=== PATIENT | male | born 1935 | race Caucasian/White ===

== ENCOUNTER 2016-09-15 10:26 | Outpatient (CLI) | payer MEDICARE, BC ==
[~2016-09-15] VITALS: Ht 171.4 cm; Wt 109.1 kg
--- NOTE | ~2016-09-15 | HEMODYNAMI ---
PATIENT:Bharati GALLEGOS MEDICAL RECORD: [id number] : 33 LOCATION:[facility] ADMISSION DATE: 09/15/16 Generatedon:09/15/201614:26 Patient name: Bharati GALLEGOS Patient #: [id number] SSN: : 1935 Date of study: 09/15/2016 Page: Of Hemodynamic Procedure Report Patient Data Patient Demographics Procedure consent was obtained First Name: Bharati Gender: Male Last Name: ROSY : 1935 Middle Initial: RAY Age: 80 year(s) Patient #: [id number] Race: Unknown Additional ID: [id number] Contact details Address: [address] [place] [address] DRIVE State: [place] City: [place] Zip code: [address] Admission Admission Data Admission Date: 09/15/2016 Admission Time: 10:26 Procedure Procedure Types Cath Procedure Diagnostic Procedure PPM/ICD PPM Dual Implant Procedure Description Procedure Date Procedure Date: 09/15/2016 Procedure Start Time: 13:54 Procedure End Time: 14:25 Procedure Staff Name Function Ronald Claros MD Performing Physician Swapnil Panda MD Assisting physician Oswaldo Ansari RT Scrub Ryan Quintanilla RN Nurse Pepper Centeno RN Nurse Vinh Dixon RT Monitor Procedure Data Cath Procedure Fluoroscopy Diagnostic fluoroscopy Total fluoroscopy Time: 1.8 time: 1.8 min min Diagnostic fluoroscopy Total fluoroscopy dose: 64 dose: 64 mGy mGy Contrast Material Contrast Material Type Amount (ml) Isovue 300 0 Estimated blood loss: 10 ml Procedure Complications No complications Procedure Medications Medication Administration Route Dosage Vancomycin I.V.P.B 1 g Lidocaine 1% with added to field 20 ml Epi Bupivacaine 0.5% added to field 10 ml Vancomycin Topical 1 g Irrigation Hemodynamics Rest Pre Cath Intra NCS Post Cath Vital Signs Time Heart Resp SPO2 NIBP (mmHg) Rhythm Pain Sedation Rate (ipm) (%) Status Level (bpm) 13:20:59 64 15 99 162/77(103) NSR 0 (11) 10(A) , No pain 13:27:18 72 22 99 129/30(52) NSR 0 (11) 10(A) , No pain 13:33:14 65 33 97 136/75(110) NSR 0 (11) 10(A) , No pain 13:37:47 64 20 97 148/67(109) NSR 0 (11) 10(A) , No pain 13:42:09 65 34 97 118/69(92) NSR 0 (11) 10(A) , No pain 13:46:37 71 13 98 115/66(103) NSR 0 (11) 10(A) , No pain 13:51:02 66 26 98 116/54(100) NSR 0 (11) 10(A) , No pain 13:55:32 71 23 97 121/51(86) NSR 0 (11) 10(A) , No pain 13:59:50 66 15 98 109/58(94) NSR 0 (11) 10(A) , No pain 14:04:16 76 27 97 103/54(79) NSR 0 (11) 10(A) , No pain 14:08:36 57 17 96 92/51(85) NSR 0 (11) 10(A) , No pain 14:12:57 80 14 96 96/52(78) NSR 0 (11) 10(A) , No pain 14:17:19 79 24 96 107/51(84) NSR 0 (11) 10(A) , No pain 14:21:43 85 23 98 95/55(71) NSR 0 (11) 10(A) , No pain Medications Time Medication Route Dose Verified Delivered Reason Notes Effectiv eness by by 13:19:39 Vancomycin Topical 1 g Pepper Pepper used for Irrigation Taryn Taryn twisthand RN 13:20:16 Bupivacaine added 10 ml Pepper Pepper used for 0.5% to Taryn Taryn procedure field RN RN 13:20:56 Lidocaine added 20 ml Pepper Pepper used for 1% with Epi to Taryn Taryn procedure field RN RN 13:24:39 Vancomycin I.V.P.B 1 g Pepper Pepper Per Taryn Taryn physician RN director customer Log Time Note 12:52:36 Diagnostic Cath status Elective 12:52:38 Oswaldo Suit RT(R) sent for patient. Start room use. 12:52:45 Time tracking: Regular hours 12:52:49 Plan of Care:Hemodynamics will remain stable., Cardiac rhythm will remain stable., Comfort level will be maintained., Respiratory function will remain adequate., Patient/ family verbilizes understanding of procedure., Procedure tolerated without complication., Recovers from procedure without complications.. 13:12:11 Patient received from Pre/Post Procedure Room to CCL 3 Alert and oriented. Tansferred to table in Supine position. 13:12:12 Warm blankets applied, and mable hugger turned on for patient comfort. 13:12:13 Correct patient and procedure confirmed by team. 13:12:14 Signed procedure consent form obtained from patient. 13:12:19 ECG and BP/O2 sat monitors applied to patient. 13:19:21 Vital chart was started 13:19:39 Vancomycin Irrigation 1 g Topical was administered by Pepper Centeno RN; used for procedure; 13:20:16 Bupivacaine 0.5% 10 ml added to field was administered by Pepper Centeno RN; used for procedure; 13:20:56 Lidocaine 1% with Epi 20 ml added to field was administered by Pepper Centeno RN; used for procedure; 13:24:39 Vancomycin 1 g I.V.P.B was administered by Pepper Centeno RN; Per physician; 13:28:56 Rhythm: sinus bradycardia 13:28:57 Full Disclosure recording started 13:29:10 H&P Date Dictated: 09/08/2016 Within 30 days and on chart., H&P Addendum completed by physician on day of procedure. (MUST COMPLETE FOR ALL OUTPATIENTS). 13:29:11 Pre-procedure instructions explained to patient. 13:29:11 Pre-op teaching completed and patient verbalized understanding. 13:29:14 Family in waiting room. 13:29:15 Patient NPO since Midnight. 13:29:18 Is the patient allergic to Iodine/contrast media? No. 13:29:23 Is patient on blood thinner?No 13:29:25 Patient diabetic? No. 13:29:54 Previous problem with sedation/anesthesia? No ? 13:29:55 Snore? No 13:29:57 Sleep apnea? No 13:29:57 Deviated septum? No 13:29:58 Opens mouth fully? Yes 13:29:59 Sticks out tongue? Yes 13:30:00 Airway obstruction? No ? 13:30:04 Dentures? Yes OUT 13:30:28 Patient pain scale 0/10 ?. 13:30:34 IV patent on arrival in left forearm with 0.9% NaCl at [facility]. 13:30:37 Lab results completed and on chart. 13:30:46 Left chest area was prepped with dura-prep and draped in sterile fashion 13:30:48 Alarms reviewed by R. N. 13:30:48 Sharps counted by scrub and verified by R.N. 13:30:54 Use device set Pacemaker Set 13:30:56 Mepilex Dressing opened to sterile field. 13:30:57 2.0 Ticron Multipack opened to sterile field. 13:30:58 3.0 Vicryl Multipack [id number] opened to sterile field. 13:31:00 5.0 Monocryl PS2 [id number] opened to sterile field. 13:31:02 Immobilizer Extra Large opened to sterile field. 13:31:37 Medtronic loan representative Gabriele Bai present for procedure. 13:31:56 Pre sharps counted by scrub and verified by RN: Sutures: 14 Sponges: 5 Stick needles: 2 Skin needles: 2 Blade: 1 Cautery: 1 13:31:59 Grounding pad site Left thigh. 13:32:00 Grounding pad site free from injury. 13:36:58 --------ALL STOP TIME OUT------ 13:36:58 Final Timeout: patient, procedure, and site verified with staff and physician. All members of the team are in agreement. 13:37:04 Left chest site verified by team. 13:37:10 Physical assessment completed. ASA score P 2 - A patient with mild systemic disease as per Swapnil Panda MD. 13:37:28 Pt did not want any sedation. 13:41:33 Medtronic Adapta PPM Dual Generator opened to sterile field. 13:41:34 Medtronic 4074-58 PPM Lead opened to sterile field. 13:41:35 Medtronic 4574-53 PPM Lead opened to sterile field. 13:43:19 Procedure started. 13:43:20 Lidocaine 1% w/epi and Bupivacaine 0.5% to left subclavicular area by Swapnil Panda MD. 13:44:23 Incision made to left subclavicular area. 13:44:50 Generator pocket made/opened. 13:48:23 Left subclavian vein accessed with 7Fr Safe Sheath. 13:49:21 Left subclavian vein accessed with 7Fr Safe Sheath. 13:50:32 Ventricular lead inserted and advanced. 13:51:54 Atrial lead inserted and advanced. 13:52:00 Case delayed due to Gray Mixing Operator working in [facility]. 14:06:12 Ventricular lead positioned. 14:07:33 Ventricular lead tested. 14:08:[address] Peel-a-way sheath was split and removed. 14:08:24 Atrial lead positioned. 14:09:38 Atrial lead tested. 14:10:30 Peel-a-way sheath was split and removed. 14:11:27 Ventricular lead attachment was completed with 2-0 ticron. 14:11:31 Atrial lead attachment was completed with 2-0 ticron. 14:11:33 Device pocket was irrigated with Vancomycin. 14:11:43 PPM Dual was attached to lead(s) and inserted into pocket. 14:12:03 Generator was sutured in place with 2-0 ticron. 14:12:48 Parameters-- Generator: Mode: Demand. Lower Rate: 60bpm. Upper Rate: 130bpm. 14:13:07 Parameters--Ventricular P/R Wave: 14.2mV. Current: 0.1mA; Threshold: 0.2V; Impedence: 1613OHMS. 14:13:13 Parameters--Atrial P/R Wave: 4.1mV. Current: 0.2mA; Threshold: 0.5V; Impedence: 617OHMS. 14:13:38 Subcutaneous closure was completed with 3-0 vicryl. 14:15:05 Skin closure was completed with 5-0 monocryl. 14:20:33 Lt Chest incision was dressed with Mepilex dressing. 14:20:38 Procedure ended.(Physican Out) 14:20:52 Fluoroscopy time 01.80 minutes. 14:20:55 Fluoroscopy dose: 64 mGy 14:20:55 Flurop Dose total: 64 14:20:57 Contrast amount:Isovue 300 0ml. 14:20:59 Sharps counted by scrub and verified by R.N. 14:21:13 Post sharps counted by scrub and verified by RN: Sutures: 14 Sponges: 5 Stick needles: 2 Skin needles: 2 Blade: 1 Cautery: 1 14:21:31 Insertion/operative site no bleeding no hematoma. 14:21:43 Post-procedure physical assessment completed. ASA score P 2 - A patient with mild systemic disease as per Swapnil Panda MD. 14:21:47 Post procedure rhythm: paced 14::58 Estimated blood loss: 10 ml 14:22:00 Post procedure instruction explained to patient.Patient verbalizes understanding. 14:22:01 Patient needs reinforcement of post procedure teaching. 14:22:11 Procedure Complication : No complications 14:22:37 Procedure and supply charges have been captured, reviewed, submitted and are correct. 14:25:04 Vital chart was stopped 14:25:04 See physician's report for complete and final results. 14:25:07 Report given to PCU. 14:25:13 Patient transfered to PCU with Bed. 14:25:16 Procedure ended. 14:25:16 Full Disclosure recording stopped 14:25:26 End room use (Document Last) Device Usage Item Name Manufacture Quantity Catalog Hospital Part Current Minimal Lot# / Number Charge Number Stock Stock Serial# Code Mepilex [place] 1 [id number] [id number] [id number] [id number] 5 Dressing Health 2.0 Ticron Ethicon 9 [id number] 22138 407303 5 Multipack 3.0 Vicryl Ethicon 1 [id number] 803854 258131 5 Multipack [id number] 5.0 Ethicon 1 Y495G 687009 725661 325983 5 Monocryl PS2 Y495G Immobilizer [place] 1 [id number] 374063 885102 427592 5 Extra Large Health Medtronic Medtronic 1 [id number] 184794 573431 5 [id number] Adapta PPM EXP Dual 12-15-17 Generator Medtronic Medtronic 1 4074-58 303052 526236 5 [id number] 407458 PPM EXP Lead 12-24-17 Medtronic Medtronic 1 4574-53 560835 501910 5 [id number] 457453 PPM EXP Lead 05-05-18 Signature Audit [place] Stage Time Signature Unsigned Intra-Procedure 09/15/2016 Vinh Dixon 2:26:09 PM RT(R) Signatures Monitor : Vinh Dixon RT Signature : Date : Time : [address] [address]
[2016-09-15 11:12] VITALS: BP 140/54; BMI 37.1
[2016-09-15] MEDS ORDERED: AVAPRO300 MG PO (11:19)
[2016-09-15] MEDS ORDERED: LIPITOR20 MG PO (11:19)
[2016-09-15] MEDS ORDERED: FLOMAX0.4 MG PO (11:20)
[2016-09-15] MEDS ORDERED: DILANTIN100 MG PO (11:21)
[2016-09-15] MEDS ORDERED: TEMAZEPAM30 MG PO (11:21)
[2016-09-15] MEDS ORDERED: PHENOBARBITAL30 MG PO (11:23)
[2016-09-15] MEDS ORDERED: ZYLOPRIM100 MG PO (11:24)
[2016-09-15] MEDS ORDERED: FOLIC ACID0.8 MG PO (11:24)
[2016-09-15] MEDS ORDERED: VITAMIN B-121000 MCG PO (11:24)
[2016-09-15] MEDS ORDERED: BIMATOPROST2.5 ML EACH EYE (11:25)
[2016-09-15] MEDS ORDERED: FISH OIL 1,2001 CAP PO (11:25)
[2016-09-15 11:56] LABS: HEMOGLOBIN 11.1 g/dL (13.5-17.5); MCH 32.4 pg (26.0-34.0); MCHC 32.6 g/dL (31.0-37.0); MCV 99.1 fL (80.0-100.0); MEAN PLATELET VOLUME 10.8 fL (7.4-10.4); RBC 3.43 10x6/uL (4.20-6.10); RDW 14.5 % (11.5-14.5); WBC 7.3 10x3/uL (4.8-10.8)
[2016-09-15 12:02] LABS: CALC OSMOLALITY 277 mosm/kg (275-300); CALCIUM 8.5 mg/dL (8.5-10.1); CARBON DIOXIDE 24.3 mmol/L (21.0-32.0); CHLORIDE - SERUM 103 mmol/L (98-107); GLUCOSE 121 mg/dL (74-106); POTASSIUM - SERUM 4.3 mmol/L (3.5-5.1); SODIUM 137 mmol/L (136-145); UREA NITROGEN 20 mg/dL (7-18); eGFR NON AFRICAN AMERICAN 76 mL/min (90-120)
[2016-09-15 12:03] LABS: APTT 33.6 SECONDS (22.8-39.4); INR 1.1 (0.85-1.17)
--- NOTE | 2016-09-15 14:52 | NUR ---
RECIEVED FROM LEAD MANUFACTURING ENGINEER BY RANDALL, NITHIN WNL. LEFT CHEST DRSG CDI, LEFT ARM IN SLING. CALL LIGHT IN REACH. WILL CONT. PLAN OF CARE.
[2016-09-15 15:02] VITALS: BP 164/65; Ht 171.4 cm; Wt 109.1 kg
[2016-09-15 15:52] VITALS: BP 138/59
--- NOTE | 2016-09-15 19:24 | NUR ---
RESUMED CARE OF PT, LYING IN BED RESPIRATIONS EVEN AND UNLABORED ON ROOM AIR. 73 PACED ON TELEMETRY. LEFT FOREARM SALINE LOCKED. LEFT CHEST INCISION WNL AND LEFT ARM IN SLING. FAMILY AT BEDSIDE, NO NEEDS AT THIS TIME. CALL LIGHT IN REACH. WILL CONTINUE TO MONITOR. SEE NURSE ASSESSMENT.
[2016-09-15 20:40] VITALS: BP 103/73
--- NOTE | 2016-09-15 23:39 | NUR ---
NUCLEAR PLANT TECHNICAL ADVISOR AT BEDSIDE TO OBTAIN VITALS, CALL LIGHT IN REACH. WILL CONTINUE WITH PLAN OF CARE.
[2016-09-16 00:03] VITALS: BP 171/61
[2016-09-16 04:17] VITALS: BP 188/67
--- NOTE | 2016-09-16 06:31 | NUR ---
NO CHANGES FROM PREVIOUS ASSESSMENT, CALL LIGHT IN REACH.
[2016-09-16 08:20] VITALS: BP 108/76
--- NOTE | 2016-09-16 12:16 | NUR ---
IV AND TELEMETRY DCD. DC PLANS GIVEN. UNDERSTANDING VOICED. ESCORTED TO CAR BY W/C.
--- NOTE | 2016-09-16 12:38 | NUR ---
IV AND TELEMETRY DCD. DC PLANS GIVEN. UNDERSTANDING VOICED. ESCORTED TO CAR BY W/C.
--- NOTE | 2016-09-17 09:28 | PRO ---
PATIENT:Bharati GALLEGOS MEDICAL RECORD: [id number] : 33 LOCATION:[facility] ADMISSION DATE: 09/15/16 PROCEDURE PERFORMED BY: ELBERT HITCHCOCK MD SURGEON: Swapnil Panda M.D. 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 PROCEDURE: After left subclavian was cannulated via modified Seldinger technique via Dr. Panda first under fluoroscopic guidance, I placed the right ventricular lead in the right ventricular apex without difficulty. After adequate R waves and thresholds were obtained, I then again under fluoroscopic guidance, placed the right atrial lead in the right atrial appendage without difficulty. After adequate P waves and thresholds were obtained, the leads were attached to the appropriate poles of the generator, and the pocket was closed via Dr. Panda. IMPRESSION: Successful lead portion of permanent pacemaker placement. COMPLICATIONS: None. ESTIMATED BLOOD LOSS: Minimal. DISPOSITION: To the floor stable. ELBERT HITCHCOCK MD at 0928 CC: [id number] DICTATION DATE: 09/16/162228 CHICKEN CATCHER: JDB 09/16/162227 DEP CLI 09/16/16 [id number] [place] [address]
== END 2016-09-16 12:39 | disposition home or self-care (01) ==
LOC: D.CATH 10:26 → D.M2 14:31 → D.CATH 09-16 12:39
PROVIDERS: Internal Medicine Cardiovascular Disease
DX: I44.2 Atrioventricular block, complete (principal); I25.10 Atherosclerotic heart disease of native coronary artery without angina pectoris; I10 Essential (primary) hypertension; E78.5 Hyperlipidemia, unspecified; Z01.812 Encounter for preprocedural laboratory examination

== ENCOUNTER 2016-11-02 13:11 | Emergency (ER) | payer MEDICARE, BC ==
[~2016-11-02 13:11] MED LIST: AVAPRO300 MG PO; BIMATOPROST2.5 ML EACH EYE; DILANTIN100 MG PO; FISH OIL 1,2001 CAP PO; FLOMAX0.4 MG PO; FOLIC ACID0.8 MG PO; LIPITOR20 MG PO; PHENOBARBITAL30 MG PO; TEMAZEPAM30 MG PO; VITAMIN B-121000 MCG PO; ZYLOPRIM100 MG PO
[2016-11-02 14:19] LABS: BASOPHILS 0.2 % (0-2); EOSINOPHILS 2.8 % (0-7); HEMATOCRIT 34.7 % (42.0-54.0); HEMOGLOBIN 11.4 g/dL (13.5-17.5); IMMATURE GRANULOCYTES 0.2 % (0-5); LYMPHOCYTES 41.6 % (15-50); MCH 32.9 pg (26.0-34.0); MCHC 32.9 g/dL (31.0-37.0); MEAN PLATELET VOLUME 10.7 fL (7.4-10.4); MONOCYTES 9.5 % (2-11); NEUTROPHILS 45.7 % (40-80); PLATELET COUNT 172 10x3/uL (130-400); RBC 3.47 10x6/uL (4.20-6.10); RDW 14.4 % (11.5-14.5); WBC 8.3 10x3/uL (4.8-10.8)
[2016-11-02 14:34] LABS: ALBUMIN 3.2 g/dL (3.4-5.0); ALKALINE PHOSPHATASE 229 U/L (46-116); ALT (SGPT) 39 U/L (10-68); BILIRUBIN - TOTAL 0.32 mg/dL (0.2-1.3); CALC OSMOLALITY 273 mosm/kg (275-300); CALCIUM 8.2 mg/dL (8.5-10.1); CARBON DIOXIDE 23.6 mmol/L (21.0-32.0); CHLORIDE - SERUM 104 mmol/L (98-107); CREATININE - SERUM 1.1 mg/dL (0.6-1.3); GLUCOSE 105 mg/dL (74-106); POTASSIUM - SERUM 4.7 mmol/L (3.5-5.1); PROTEIN - SERUM 7.3 g/dL (6.4-8.2); SODIUM 136 mmol/L (136-145); UREA NITROGEN 19 mg/dL (7-18); eGFR NON AFRICAN AMERICAN 68 mL/min (90-120)
[2016-11-02 14:45] LABS: CKMB 0.9 U/L (0.0-3.6); CREATINE KINASE 55 UL (21-232)
[2016-11-02 14:46] LABS: TROPONIN-I 0.017 ng/mL (0.000-0.060)
== END 2016-11-02 17:30 | disposition home or self-care (01) ==
LOC: D.ER 13:11
PROVIDERS: Emergency Medicine
DX: R07.9 Chest pain, unspecified (principal); I50.9 Heart failure, unspecified; I10 Essential (primary) hypertension